=== PATIENT | female | born 2000 | race Caucasian/White ===

== ENCOUNTER → 2019-05-22 08:44 | Outpatient (CLI) | payer BC, SELFPAY ==
[2019-05-22 11:25] LABS: Estradiol 16.2 pg/mL; Follicle Stimulating Hormone 7.3 mIU/mL; Free T3 2.5 pg/mL (2.18-3.98); Progesterone Level 0.54 ng/mL (See Comment); Prolactin 17.8 ng/mL; T4 Free Direct 0.86 ng/dL (0.76-1.46); Thyroid Stim Hormone (TSH) 1.35 uIU/mL (0.358-3.74)
[2019-05-23 05:06] LABS: DHEA Sulfate 189.4 ug/dL (110.0-431.7)
[2019-05-23 09:38] LABS: Sex Hormone-binding Globulin 87.9 nmol/L (24.6-122.0)
[2019-05-26 12:30] LABS: 17-Hydroxyprogesterone 27 ng/dL (.)
== END ==
PROVIDERS: Visit Provider Obstetrics & Gynecology
DX: N92.6 Irregular menstruation, unspecified (principal); N91.5 Oligomenorrhea, unspecified
CPT/HCPCS: 36415; 82533; 82627; 82670; 83001; 83498; 84144; 84146; 84270; 84403; 84439; 84443; 84481; 82626

== ENCOUNTER → 2019-05-29 06:51 | Outpatient (CLI) | payer BC, SELFPAY ==
[2017-07-27 15:06] VITALS: BMI 21.8
[2019-05-29 07:49] LABS: Glucose 75GTT - Fasting 93 mg/dL (70-99)
[2019-05-29 08:28] LABS: Glucose 75GTT - 30 minutes 135 mg/dL (100-160)
[2019-05-29 09:00] LABS: Insulin 75GTT - 30 MIN 150.2 mU/L (Not Estab.)
[2019-05-29 09:00] LABS: Insulin 75GTT - Fasting 4.1 mU/L (2.6-37.6)
[2019-05-29 09:31] LABS: Glucose 75GTT - 60 minutes 99 mg/dL (100-160)
[2019-05-29 09:45] LABS: Insulin 75GTT - 60 min 146.7 mU/L (Not Estab)
[2019-05-29 10:57] LABS: Glucose 75GTT - 120 minutes 67 mg/dL (70-140)
[2019-05-29 11:08] LABS: Insulin 75GTT - 120 min 80.4 mU/L (Not Estab.)
== END ==
PROVIDERS: Family Provider Pediatrics; PCP Pediatrics; Referring Provider Obstetrics & Gynecology; Visit Provider Obstetrics & Gynecology
DX: N92.6 Irregular menstruation, unspecified (principal); R73.09 Other abnormal glucose
CPT/HCPCS: 36415; 82951; 82952; 83525

== ENCOUNTER → 2020-06-11 15:05 | Outpatient (CLI) | payer BC, SELFPAY ==
[2020-06-14 16:48] LABS: HPV Reflexed? NOT INDICATED
== END ==
PROVIDERS: PCP Pediatrics; Visit Provider Obstetrics & Gynecology
DX: Z12.4 Encounter for screening for malignant neoplasm of cervix (principal)
CPT/HCPCS: 88175; G0145

== ENCOUNTER 2021-08-20 16:06 | Outpatient (CLI) | payer BC, SELFPAY ==
[2021-08-25 18:08] LABS: Chlamydia By Nucleic Acid AMP Negative (Negative)
[2021-08-26 16:46] LABS: Gonococcus By Nucleic Acid AMP Negative (Negative)
== END 2021-08-20 23:59 | disposition short-term general hospital (02) ==
LOC: LABSPEC 16:12
PROVIDERS: PCP Pediatrics; Visit Provider Obstetrics & Gynecology
DX: Z11.3 Encounter for screening for infections with a predominantly sexual mode of transmission (principal)
CPT/HCPCS: 87491; 87591

== ENCOUNTER → 2022-03-11 | Outpatient (CLI) | payer BC, SELFPAY ==
[2022-03-11 12:40] LABS: Absolute Lymphocyte Count 2.04 X10^3/uL (0.83-4.51); Absolute Neutrophil Count 2.6 X10^3/uL (2.0-7.7); Basophil# 0.07 X10^3/uL; Basophil% 1.3 % (0-1); Eosinophil# 0.09 X10^3/uL; Eosinophils% 1.7 % (0-5); Hematocrit 43.6 % (37-47); Hemoglobin 14.4 g/dL (12.0-15.0); Lymphocyte # 2.04 X10^3/ul (0.83-4.51); Lymphocyte % 37.9 % (19-41); Mean Platelet Vol. 10.3 fl (6.2-12.0); Monocyte# 0.54 X10^3/uL; NRBC Flagged by Analyzer 0 % (0-5); Neutrophil # 2.62 X10^3/uL (2.7-7.7); Neutrophil % 48.7 % (47-70); Platelet Count 267 K/mm3 (150-450); RBC Distribution Width CV 12.3 % (11.6-14.6); RBC Distribution Width SD 42.5 fl (35.1-43.9); Red Blood Count 4.64 M/mm3 (4.2-5.4); White Blood Count 5.4 K/mm3 (4.4-11.0)
[2022-03-11 13:11] LABS: Progesterone Level 0.36 ng/mL (See Comment); Vitamin B12 513 pg/mL (211-911); Vitamin D,25 Hydroxy 31.6 ng/mL
[2022-03-11 14:12] LABS: ALB/GLOB Ratio 1.1 RATIO (0.9-2.4); AST(SGOT) 18 U/L (15-37); Alanine Aminotransfer ALT/SGPT 33 U/L (13-56); Albumin, Serum 4.1 g/dL (3.2-5.0); Alkaline Phosphatase 81 U/L (45-117); Anion Gap 4 (5-15); BUN 17 mg/dL (7-18); BUN/Creat Ratio 19.4 RATIO (10-20); Calcium,Total 9.3 mg/dL (8.5-10.1); Chloride 106 mmol/L (98-107); Creatinine, Serum 0.88 mg/dL (0.55-1.02); EST Glomerular Filtration Rate 85 mL/min (>60); Est Glom Filt Rate - Afr Amer 103 mL/min (>60); Ferritin 63 ng/mL (8-252); Globulin 3.6 g/dL (2.2-4.2); Glucose 57 mg/dL (74-106); Potassium 3.7 mmol/L (3.5-5.1); Prolactin 9.8 ng/mL; Protein, Total 7.7 g/dL (6.4-8.2); Sodium Level 139 mmol/L (136-145); Thyroid Stim Hormone (TSH) 0.89 uIU/mL (0.358-3.74)
[2022-03-15 15:28] LABS: Estrogen, Total, Serum 150 pg/mL (.)
== END | disposition home or self-care (01) ==
LOC: MFPLAB 10:07
PROVIDERS: PCP Family Medicine; Referring Provider Family Medicine; Visit Provider Family Medicine
DX: R53.83 Other fatigue (principal); N92.6 Irregular menstruation, unspecified
CPT/HCPCS: 36415; 80053; 82306; 82607; 82672; 82728; 84144; 84146; 84443; 85025

== ENCOUNTER → 2022-09-17 | Outpatient (CLI) | payer BC, SELFPAY ==
[2022-09-21 22:07] LABS: Chlamydia By Nucleic Acid AMP Negative (Negative)
[2022-09-21 22:42] LABS: Gonococcus By Nucleic Acid AMP Negative (Negative)
== END | disposition home or self-care (01) ==
LOC: LABSPEC 15:28
PROVIDERS: PCP Family Medicine; Referring Provider Obstetrics & Gynecology; Visit Provider Obstetrics & Gynecology
DX: Z34.90 Encounter for supervision of normal pregnancy, unspecified, unspecified trimester (principal)
CPT/HCPCS: 87077; 87086; 87088; 87186; 87491; 87591

== ENCOUNTER → 2022-10-02 | Outpatient (CLI) | payer BC, SELFPAY ==
[2022-10-02 15:27] LABS: Absolute Lymphocyte Count 2.32 X10^3/uL (0.83-4.51); Absolute Neutrophil Count 7.4 X10^3/uL (2.0-7.7); Basophil# 0.08 X10^3/uL; Basophil% 0.7 % (0-1); Eosinophil# 0.14 X10^3/uL; Eosinophils% 1.3 % (0-5); Hematocrit 40.3 % (37-47); Hemoglobin 13.8 g/dL (12.0-15.0); Lymphocyte # 2.32 X10^3/ul (0.83-4.51); Lymphocyte % 21.4 % (19-41); Mean Corp Hgb Conc 34.2 g/dL (32-36); Mean Corpuscular Volume 90.6 fL (81-99); Mean Platelet Vol. 9.4 fl (6.2-12.0); Monocyte# 0.84 X10^3/uL; Monocyte% 7.8 % (0-10); NRBC Flagged by Analyzer 0 % (0-5); Neutrophil # 7.38 X10^3/uL (2.7-7.7); Neutrophil % 68.2 % (47-70); Platelet Count 301 K/mm3 (150-450); RBC Distribution Width CV 12.3 % (11.6-14.6); RBC Distribution Width SD 40.3 fl (35.1-43.9); Red Blood Count 4.45 M/mm3 (4.2-5.4); White Blood Count 10.8 K/mm3 (4.4-11.0)
[2022-10-02 16:12] LABS: Vitamin D,25 Hydroxy 24.1 ng/mL
[2022-10-02 16:45] LABS: HIV - WCH Non-Reactive (Nonreactive); Hepatitis B Surface Antigen Non-Reactive (Nonreactive); Hepatitis C Antibody Non-Reactive (Nonreactive); Rubella IgG Reactive (Nonreactive); Syphilis Antibodies Non-reactive
== END | disposition home or self-care (01) ==
LOC: LAB 14:53
PROVIDERS: Obstetrics & Gynecology; PCP Family Medicine; Referring Provider Registered Nurse; Visit Provider Registered Nurse
DX: Z34.00 Encounter for supervision of normal first pregnancy, unspecified trimester (principal); Z3A.11 11 weeks gestation of pregnancy
CPT/HCPCS: 36415; 82306; 85025; 86703; 86762; 86780; 86803; 86850; 86900; 86901; 87340

== ENCOUNTER → 2023-01-11 | Outpatient (CLI) | payer BC, SELFPAY ==
[2023-01-11 09:08] LABS: Absolute Lymphocyte Count 1.82 X10^3/uL (0.83-4.51); Absolute Neutrophil Count 9.1 X10^3/uL (2.0-7.7); Basophil# 0.07 X10^3/uL; Basophil% 0.6 % (0-1); Eosinophils% 0.8 % (0-5); Hematocrit 38.4 % (37-47); Hemoglobin 12.8 g/dL (12.0-15.0); Lymphocyte # 1.82 X10^3/ul (0.83-4.51); Lymphocyte % 14.8 % (19-41); Mean Corp Hgb Conc 33.3 g/dL (32-36); Mean Corpuscular Hgb 32.3 pg (27.0-32.0); Mean Platelet Vol. 9.9 fl (6.2-12.0); Monocyte# 1.07 X10^3/uL; Monocyte% 8.7 % (0-10); NRBC Flagged by Analyzer 0 % (0-5); Neutrophil # 9.07 X10^3/uL (2.7-7.7); Neutrophil % 73.6 % (47-70); Platelet Count 225 K/mm3 (150-450); RBC Distribution Width CV 13.2 % (11.6-14.6); RBC Distribution Width SD 47.2 fl (35.1-43.9); Red Blood Count 3.96 M/mm3 (4.2-5.4); White Blood Count 12.3 K/mm3 (4.4-11.0)
[2023-01-11 09:18] LABS: Glucose Challenge Gest 1H 50g 94 mg/dL (70-140)
[2023-01-11 10:09] LABS: HIV - WCH Non-Reactive (Nonreactive); Syphilis Antibodies Non-reactive
== END | disposition home or self-care (01) ==
LOC: PAVLAB 08:38
PROVIDERS: PCP Family Medicine; Referring Provider Advanced Practice Midwife; Visit Provider Advanced Practice Midwife
DX: Z34.00 Encounter for supervision of normal first pregnancy, unspecified trimester (principal); Z3A.11 11 weeks gestation of pregnancy
CPT/HCPCS: 36415; 82950; 85025; 86703; 86780

== ENCOUNTER → 2023-01-22 | Outpatient (CLI) | payer BC, SELFPAY ==
--- NOTE | 2023-01-22 07:53 | US_ITS ---
STUDY: SECOND AND THIRD TRIMESTER OBSTETRICAL ULTRASOUND - LIMITED REASON FOR EXAM: Female, 22 years old marginal cord insertion/growth LMP: 07/13/2022. PRIOR ULTRASOUND: No prior examinations are available for comparison. TECHNIQUE: Transabdominal TECHNICAL QUALITY: Adequate. FINDINGS: There is a single intrauterine fetus. The fetus is in a cephalic presentation. There is demonstrated cardiac activity with a heart rate of 141 bpm. There is a normal amniotic fluid volume. The largest amniotic fluid pocket measures 7.1 cm. The amniotic fluid index (ABHISHEK) is 19.6 cm. The placenta is posterior in location and is not low lying. There are Grade 0 placental changes. The cervix measures 4.5 cm cm in length. The umbilical cord inserts approximately 2.5 cm away from the placental edge which is within normal limits to borderline marginal. BIOMETRY: BPD: 6.7 cm: 27 weeks, 0 days HC: 24.8 cm: 27 weeks, 0 days AC: 23.6 cm: 27 weeks, 6 days FL: 4.7 cm: 5 weeks, 6 days Age by LMP: 27 weeks, 4 days. DUANE by LMP: 04/19/2023. age by current US: 26 weeks, 6 days. DUANE by current US: 04/24/2023. Estimated weight: 1031) grams, +/- 155 grams, 23 percentile. anatomy otherwise is not included on this examination and is not evaluated. US/OB Limited With Biometrics IMPRESSION: 1. Single live intrauterine fetus in cephalic presentation with an estimated gestational age of 26 weeks and 6 days. 2. Cord insertion site is approximately 2.5 cm from the edge of the placenta. Electronically Signed: Erasmo Pathak MD at 10:10 EDT ,
== END | disposition home or self-care (01) ==
PROVIDERS: PCP Family Medicine; Referring Provider Advanced Practice Midwife; Visit Provider Advanced Practice Midwife
DX: Z34.00 Encounter for supervision of normal first pregnancy, unspecified trimester (principal); Z3A.00 Weeks of gestation of pregnancy not specified
CPT/HCPCS: 76816

== ENCOUNTER → 2023-02-19 | Outpatient (CLI) | payer BC, SELFPAY ==
--- NOTE | 2023-02-19 07:52 | US_ITS ---
STUDY: SECOND AND THIRD TRIMESTER OBSTETRICAL ULTRASOUND - LIMITED REASON FOR EXAM: Female, 22 years old marginal cord insertion- growth LMP: July 13, 2022. PRIOR ULTRASOUND: Comparison is made with prior study dated January 22, 2023. TECHNIQUE: Transabdominal TECHNICAL QUALITY: Adequate. FINDINGS: There is a single intrauterine fetus. The fetus is in a cephalic presentation. There is demonstrated cardiac activity with a heart rate of 137 bpm. There is a normal amniotic fluid volume. The largest amniotic fluid pocket measures 4.6 cm. The amniotic fluid index (ABHISHEK) is 16.03 cm. The placenta is posterior in location and is not low lying. The umbilical cord inserts at 2.1 cm from the placental edge. There are Grade 1 placental changes. The cervix measures 3.8 cm in length. BIOMETRY: BPD: 7.8 cm: 31 weeks, 2 days HC: 29.87 cm: 33 weeks, 1 days AC: 27.83 cm: 31 weeks, 6 days FL: 5.56 cm: 29 weeks, 2 days Age by LMP: 31 weeks, 4 days. DUANE by LMP: April 19, 2023. age by current US: 31 weeks, 3 days. DUANE by current US: April 20, 2023. Estimated weight: 1696 grams, +/- 254 grams, 25 percentile. US/OB Limited With Biometrics IMPRESSION: Single live uterine gestation with mean gestational age of 31 weeks and 4 days. The insertion of the umbilical cord is 2.1 cm away from the placental margin. Electronically Signed: Gibran Meade MD at 14:22 EDT ,
== END | disposition home or self-care (01) ==
LOC: US 07:52
PROVIDERS: PCP Family Medicine; Referring Provider Advanced Practice Midwife; Visit Provider Advanced Practice Midwife
DX: Z34.00 Encounter for supervision of normal first pregnancy, unspecified trimester (principal); Z3A.00 Weeks of gestation of pregnancy not specified
CPT/HCPCS: 76816

== ENCOUNTER → 2023-03-23 | Outpatient (CLI) | payer BC, SELFPAY | END | disposition home or self-care (01) | LOC: LABSPEC 16:06 | PROVIDERS: PCP Family Medicine; Referring Provider Obstetrics & Gynecology; Visit Provider Obstetrics & Gynecology | DX: Z34.00 Encounter for supervision of normal first pregnancy, unspecified trimester (principal); Z3A.00 Weeks of gestation of pregnancy not specified | CPT/HCPCS: 87081 ==

== ENCOUNTER → 2023-04-02 | Outpatient (CLI) | payer BC, SELFPAY ==
--- NOTE | 2023-04-02 10:51 | US_ITS ---
STUDY: SECOND AND THIRD TRIMESTER OBSTETRICAL ULTRASOUND - LIMITED REASON FOR EXAM: Female, 22 years old growth LMP: 07/13/2023 PRIOR ULTRASOUND: 02/19/2023. TECHNIQUE: Transabdominal TECHNICAL QUALITY: Adequate. FINDINGS: There is a single intrauterine fetus. The fetus is in a cephalic presentation. There is demonstrated cardiac activity with a heart rate of 135 bpm. There is a normal amniotic fluid volume. The largest amniotic fluid pocket measures 5.2 cm. The amniotic fluid index (ABHISHEK) is 14.8 cm. The placenta is posterior in location and is not low lying. There are Grade 1 placental changes. The cervix measures 3.9 cm in length. BIOMETRY: BPD: 9.3: 37 weeks, 4 days HC: 33.0: 37weeks, 4 days AC: 33.8: 37 weeks, 5 days FL: 6.7: 34 weeks, 2 days Age by LMP: 36 weeks, 6 days. DUANE by LMP: 04/24/2023. age by prior US: weeks, days. DUANE by prior US: . age by current US: 37 weeks, 4 days. DUANE by current US: 04/19/2023. Estimated weight: 3072 grams, +/- 461 grams, 43 percentile. Gender: US/OB Limited With Biometrics IMPRESSION: Single live fetus in a vertex presentation. survey not performed on this exam. Placenta is grade 1 and is not low-lying. Cervix is closed. age by current US: 37 weeks, 4 days. DUANE by current US: 04/19/2023. Estimated weight: 3072 grams, +/- 461 grams, 43 percentile. Electronically Signed: Ramon Pereira MD at 21:11 EDT ,
== END | disposition home or self-care (01) ==
PROVIDERS: PCP Family Medicine; Referring Provider Obstetrics & Gynecology; Visit Provider Obstetrics & Gynecology
DX: O98.513 Other viral diseases complicating pregnancy, third trimester (principal); U07.1 COVID-19; Z3A.00 Weeks of gestation of pregnancy not specified
CPT/HCPCS: 76816

== ENCOUNTER 2023-04-15 03:56 | Inpatient (IN) | payer BC, SELFPAY ==
[2023-04-15] VITALS (111 sets, daily range): BP systolic 60–173; BP diastolic 30–126; PULSE 47–157; RESP 16–18; TEMP 36.4–37.4; O2SAT 84–100; BMI 24.7
[2023-04-15] MEDS: Lactated Ringers 1,000 ML 50 ML IV (04:12)
[2023-04-15] MEDS: LACTATED RINGERS 500 ML 999 ML IV (04:20)
[2023-04-15 04:24] LABS: Absolute Lymphocyte Count 1.99 X10^3/uL (0.83-4.51); Absolute Neutrophil Count 14.3 X10^3/uL (2.0-7.7); Basophil# 0.07 X10^3/uL; Basophil% 0.4 % (0-1); Eosinophil# 0.02 X10^3/uL; Eosinophils% 0.1 % (0-5); Hematocrit 40.2 % (37-47); Hemoglobin 14.4 g/dL (12.0-15.0); Lymphocyte # 1.99 X10^3/ul (0.83-4.51); Lymphocyte % 11.1 % (19-41); Mean Corp Hgb Conc 35.8 g/dL (32-36); Mean Corpuscular Hgb 32.7 pg (27.0-32.0); Mean Corpuscular Volume 91.4 fL (81-99); Mean Platelet Vol. 10.7 fl (6.2-12.0); Monocyte# 1.36 X10^3/uL; Monocyte% 7.6 % (0-10); NRBC Flagged by Analyzer 0 % (0-5); Neutrophil # 14.33 X10^3/uL (2.7-7.7); Neutrophil % 79.7 % (47-70); Platelet Count 191 K/mm3 (150-450); RBC Distribution Width CV 12.6 % (11.6-14.6); RBC Distribution Width SD 42.1 fl (35.1-43.9)
[2023-04-15 05:07] LABS: Syphilis Antibodies Non-reactive
[2023-04-15] MEDS: fentaNYL-bupivacaine (epidural) 100 ML BAG EPIDURAL (05:19)
[2023-04-15] MEDS: Oxytocin 15 Units/NS 250ml 15 UNITS/250 ML IV.SOLN 83 UNITS IV (09:23)
[2023-04-15] MEDS: Oxytocin 10 UNITS/ML Vial IM (09:27)
[2023-04-15] MEDS: Ondansetron 4 MG/2 ML Vial IV (10:42)
--- NOTE | 2023-04-15 10:44 | EX.PCM.OBRPT ---
Assessment & Plan (1) COVID-19 affecting in third trimester: COMMENT: asa 81mg daily, growth US @ 36 week-43% ABHISHEK 14 (2) Marginal insertion of umbilical cord: COMMENT: 28 (2.5cm from edge of placenta) and 34 growth and ABHISHEK per uptodate. Growth at 25% at 31 weeks (3) Vaginal delivery: COMMENT: KW 39.3 IAL Girl Elis (4) Supervision of normal first : COMMENT: , DUANE 04/19/23 ITS A GIRL: Elis!! Desean (5) : QUALIFIERS: Weeks of gestation: 39 weeks Qualified Code(s): Z3A.39 - 39 weeks gestation of COMMENT: GBS neg. discussed genetic & carrier testing Maternal Data Information DUANE Calculator Estimated Delivery Date Method Current WG Current Estimate 04/19/23 LMP (Certain) 39w 3d Final DUANE: 04/19/23 Final DUANE Source: US >20 weeks Gestational age: 39.3 weeks Vaginal Delivery Maternal Presentation Maternal Presentation: Active Labor Maternal Presentation: Progressed well to 10cm dilated and made steady progress with effective maternal pushing. Delivered the head in KYRIE presentation. The head was delivered atraumatically and no nuchal cord was identified. The anterior and posterior shoulders delivered without complication followed by the rest of the infant and the was placed on the maternal abdomen. Delayed cord clamping was employed for approximately 3 minutes. Cord was clamped and cut and gentle traction was applied to the cord and the placenta delivered spontaneously. Immediately following, it was noted to be intact with a 3 vessel cord. The perineum and vagina were inspected and noted to have a second degree laceration which was repaired by Dr Ogden. See her note EBL was 400cc. Patient and infant tolerated delivery well. Apgars 9/9. Dr Ogden notified of vaginal delivery and orders reviewed. Physician agrees with current plan of care. 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: Samreen Blackmon Type of Anesthesia: Epidural Estimated Blood Loss: 400 Time of Delivery: 09:15 Findings Presentation: Vertex Amniotic Membrane Rupture Type: Spontaneous Amniotic Fluid Description: Clear Placental Delivery Description: Spontaneous Placenta Disposition: [facility] Cord Vessel Description: 3 Vessels Cord Entanglement: None Infant A Gender: Female (1 minute): 9 (5 minute): 9 Delayed Cord Clamping: Yes Post Vaginal Delivery Medications Given After Delivery: IV Pitocin and IM Pitocin Episiotomy Description: None Laceration: 2nd degree Multi Select Codes Urinary/Genital Urinary/Genital CPT Codes: 86842 Vaginal Delivery [facility]
[2023-04-15 11:23] LABS: Absolute Neutrophil Count 19.1 X10^3/uL (2.0-7.7); Basophil# 0.05 X10^3/uL; Basophil% 0.2 % (0-1); Hematocrit 31.3 % (37-47); Hemoglobin 10.9 g/dL (12.0-15.0); Lymphocyte % 6.6 % (19-41); Mean Corp Hgb Conc 34.8 g/dL (32-36); Mean Corpuscular Volume 94.8 fL (81-99); Mean Platelet Vol. 10.8 fl (6.2-12.0); Monocyte# 1.92 X10^3/uL; Monocyte% 8.4 % (0-10); NRBC Flagged by Analyzer 0 % (0-5); Neutrophil # 19.12 X10^3/uL (2.7-7.7); Neutrophil % 83.6 % (47-70); POSITIVE DIFFERENTIAL YES; Platelet Count 200 K/mm3 (150-450); RBC Distribution Width CV 12.7 % (11.6-14.6); RBC Distribution Width SD 43.8 fl (35.1-43.9); White Blood Count 22.9 K/mm3 (4.4-11.0)
[2023-04-15 11:25] LABS: Differential Indicated SCAN CRITERIA MET
[2023-04-15] MEDS: Lactated Ringers 1,000 ML 999 ML IV ×2 (11:28→11:39)
[2023-04-15] MEDS: 0.9% Saline Lock 10 ML Syringe IV ×3 (11:39→17:37)
[2023-04-15] MEDS: Clindamycin 900 MG/50 ML BAG 75 MG IV ×3 (12:46→23:55)
[2023-04-15 12:57] LABS: Lactic Acid 2.9 mmol/L (0.4-1.9)
[2023-04-15] MEDS: Gentamicin IV 290 MG in Dextrose 5%-Water (50mL Bag) 50 ML 100 MG IVPB (13:50)
[2023-04-15] MEDS: Ibuprofen 600 MG Tablet PO ×2 (15:15→21:24)
[2023-04-15 16:14] LABS: Reflex Lactate? Y
[2023-04-15] MEDS: Acetaminophen 500 MG Tablet 1000 MG PO (17:38)
--- NOTE | 2023-04-15 17:53 | PCM.PN.BLA ---
Progress Note Patient evaluated for persistent hypotension after delivery. Stat CBC showed elevated white blood cell count. Afebrile. No gross signs of infection, urine culture sent. Lactic acid elevated. Aggressive fluid resuscitation given with over 3 L IV fluids given. Hypotension resolving. Patient feeling better and less dizzy now. Vaginal exam performed and no palpable masses or areas of concern noted. Intact repair noted. Repeat lactic acid planned to determine if additional fluids needed.
--- NOTE | 2023-04-15 17:59 | HP.PCM.OB_ITS ---
HPI - General General Date of Admission: 04/15/23 Date of Service: 04/15/23 HPI Narrative SERGIO RUBI, is a 22 F 39.3 weeks who presents IAL. Maternal Data Information DUANE Calculator Estimated Delivery Date Method Current WG Current Estimate 04/19/23 LMP (Certain) 39w 3d Final DUANE: 04/19/23 Final DUANE Source: US >20 weeks Gestational age: 39.3 weeks PFSH PFSH Home Medications multivit-min no.71-iron fum 28 mg-folate no.1 1 mg-dha 300 mg capsule (PNV- [place]) 1 cap PO DAILY 09/03/22 [History Last Taken 04/14/23 08:00] aspirin 81 mg capsule 81 mg PO DAILY 04/15/23 [History Last Taken 04/14/23 08:00] Allergy/AdvReac Type Severity Reaction Status Date / Time No Known Allergies Allergy Verified 04/15/23 03:37 Family History Mother Miscarriage two miscarriages Other Heart disease Thyroid disorder Social History adopted: No household members: spouse housing: house current occupational status: employed current occupation: [employer] current occupational exposures/hazards: No pets and animals: No history of recent travel: No sexually active: Yes Smoking Status: Never smoker alcohol intake: never substance use type: does not use well-balanced diet: daily or most days caffeine: No eating out: 1-3 times/week during the past year weight has: remained stable what type of physical activity do you participate in: walking and yoga frequency: 3-4 times per week duration: 15-30 minutes/day ca/hoahaoism: [employer] seatbelt use: always do you feel safe at home: Yes 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 History 1 Elective abortions Hx Para 0 Spontaneous abortions Hx # Term Pregnancies Ectopic pregnancies Hx # Pregnancies Multiple births # of living children Visit Details Expected Delivery Route/Plan Labor Preferences- CB/BF classes: encouraged 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 Relevant counseling for the gestational age provided. Continue routine care and follow up unless otherwise noted in visit notes/problem list details OB Flowsheet Initial Weight: 136 lb Date -?-?-?-?-?-?-?-?-?-?-?-?- EGA Weight BP Urine Prot -?-?-?-?-?-?-?-?-?--?-?-?- Glucose FHR FuHt Pres Dilation -?-?-?-?-?-?-?-?-?-?-?-?- Effaced St Visit Note 09/17/22 -?-?-?-?-?-?-?-?-?-?-?-?- 9w 3d 136 lb 6 oz (+6 oz) 103/66 -?-?-?-?-?-?-?-?-?-?-?-?- 170 -?-?-?-?-?-?-?-?-?-?-?-?- SM- CRL cons wit h LMP 10/02/22 -?-?-?-?-?-?-?-?-?-?-?-?- 11w 4d 136 lb 2 oz (+2 oz) 96/58 Negative -?-?-?-?-?-?-?-?-?-?-?-?- Negative 165 -?-?-?-?-?-?-?-?-?-?-?-?- LC-no vb/hannah durant to obtain NOB blood work. declines genetic screening. 10/27/22 -?-?-?-?-?-?-?-?-?-?-?-?- 15w 1d 136 lb (+0 oz) 94/58 Negative -?-?-?-?-?-?-?-?-?-?-?-?- Negative 140 -?-?-?-?-?-?-?-?-?-?-?-?- LC- no lof/vb/cr amping. declines afp. normal ob labs, started on vit d. 11/24/22 -?-?-?-?-?-?-?-?-?-?-?-?- 19w 1d 141 lb (+5 lb) 94/56 Negative -?-?-?-?-?-?-?-?-?-?-?-?- Negative 141 -?-?-?-?-?-?-?-?-?-?-?-?- LC- doing well.d eclines nipt. marginal cord insertion and LC- doing well.declines nipt . 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 12/24/22 -?-?-?-?-?-?-?-?-?-?-?-?- w 3d 144 lb 4 oz (+8 lb 4 oz) 93/59 Negative -?-?-?-?-?-?-?-?-?-?-?-?- Negative 140 24 -?-?-?-?-?-?-?-?-?-?--?-?- KW- + FM. no lof /vb/ctx KW- + FM. no lof/vb/ctx. no concerns today. 28 week labs and Fresh test discussed. 28 week US ordered 01/19/23 -?-?-?-?-?-?-?-?-?-?-?-?- 27w 1d 146 lb 2 oz (+10 lb 2 oz) 90/55 Negative -?-?-?-?-?-?-?-?-?-?-?-?- Negative 146 29 -?-?-?-?-?-?-?-?-?-?-?-?- KW- + FM, no vb/ cramping. labs nl, US on wednesday. encouraged compression hose for episodes of lightheadedness with rest. 02/09/23 -?-?-?-?-?-?-?-?-?-?-?-?- 30w 1d 148 lb 2 oz (+12 lb 2 oz) 95/62 Negative -?-?-?-?-?-?-?-?-?-?-?-?- Negative 143 31 -?-?-?-?-?-?-?-?-?-?-?-?- KW-+fm. no lof/v b/cramping. LARC done. Plans US for 34 weeks for marginal cord insertion. 02/23/23 -?-?-?-?-?-?-?-?-?-?-?-?- 32w 1d 149 lb 8 oz (+13 lb 8 oz) 102/63 Negative -?-?-?-?-?-?-?-?-?-?-?-?- Negative 147 32 -?-?-?-?-?-?-?-?-?-?-?-?- JV- JV- no lof, vaginal bleeding , or dec fm. no complaints today. ultrasound reviewed. 03/09/23 -?-?-?-?-?-?-?-?-?-?-?-?- 34w 1d 150 lb 2 oz (+14 lb 2 oz) 97/57 Trace -?-?-?-?-?-?-?-?-?-?-?-?- Negative 140 34 -?-?-?-?-?-?-?-?-?-?-?-?- KW-no lof/vb/ctx . good fm. no concerns today 03/23/23 -?-?-?-?-?-?-?-?-?-?-?-?- 36w 1d 152 lb 6 oz (+16 lb 6 oz) 104/62 Negative -?-?-?-?-?-?-?-?-?-?-?-?- Negative 145 36 Cephalic -?-?-?-?-?-?-?-?-?-?-?-?- JV- GBS collecte d. pt declines exam. no lof ,vaginal bleeding, or dec fm,. 03/31/23 -?-?-?-?-?-?-?-?-?-?-?-?- 37w 2d 149 lb 6 oz (+13 lb 6 oz) 101/63 Negative -?-?-?-?-?-?-?-?-?--?-?-?- Negative 125 36 -?-?-?-?-?-?-?-?-?-?-?-?- LC- no lof/vb/ct x. good fm. declines exam. gbs negative. reviewed labor techniques, desires tub room. 04/06/23 -?-?-?-?-?-?-?-?-?-?-?-?- 38w 1d 152 lb 6 oz (+16 lb 6 oz) 98/54 -?-?-?-?-?-?-?-?-?-?-?-?- 155 37 -?-?-?-?--?-?-?-?-?-?-?-?- KW-no lof/vb/ctx . good fm. Discussed last growth US. 04/14/23 -?-?-?-?-?-?-?-?-?-?-?-?- 39w 2d 151 lb 8 oz (+15 lb 8 oz) Negative -?-?-?-?-?-?-?-?-?-?-?-?- Negative 140 38 Cephalic 1 -?-?-?-?-?-?-?-?-?-?-?-?- 60 -2 LC- no lof /vb/ctx. good fm. membrane swept today. labor precautions provided. NST FHR Rate Baby B Baseline: 130 Variability:: Moderate Accelerations:: 15 x 15 Decelerations:: None NST Reactive:: Yes FHR Category:: Category I Uterine Activity:: 2-3 minutes ROS Constitutional Constitutional: Denies change in weight, fatigue, fever(s), headache(s), poor appetite or weakness Eyes Eyes: Denies blurry vision, change in vision, floaters, seeing flashes or spots in vision ENT HEENT: Denies dizziness, headache(s), loss taste/smell or sore throat Cardiovascular Cardiovascular: Denies chest pain, dizziness, dyspnea, irregular heart rhythm, lightheadedness, palpitations or rapid heart rate Respiratory/Chest Respiratory/Chest: Denies change in mental status, chest tightness, cough, dyspnea or breast pain Gastrointestinal Gastrointestinal: Denies anorexia, chewing difficulty, constipation, diarrhea or weight changes Genitourinary Genitourinary: Denies difficulty urinating, dysuria, flank pain, genital pain, urinary frequency or urinary urgency Musculoskeletal Musculoskeletal: Denies back pain, difficulty walking, extremity pain, joint pain, muscle cramps or muscle weakness Integumentary Integumentary: Denies lesions or unusual bruising Neurologic Neurologic: Denies abnormal movements, abnormal speech, dizziness, numbness, seizure-like activity, syncope or weakness Psychiatric Psychiatric: Denies behavioral changes, change in appetite, confusion, depression, homicidal ideation, suicidal ideation or suicidal thoughts Endocrine Endocrinology: Denies excessive sweating, polydipsia or polyuria Hematologic/Lymphatic Hematologic/Lymphatic: Denies anemia Allergic/Immunologic Allergic/Immunologic: Denies itchy eyes, lip swelling, throat swelling, tongue swelling or wheezing Vital Signs Vital Signs Vital Signs: 04/15/23 03:32 04/15/23 03:32 04/15/23 03:33 Temperature Temperature Source Pulse Rate 86 Respiratory Rate Blood Pressure 104/52 L Blood Pressure [BP] Blood Pressure Mean [BP] BP Systolic 104 BP Diastolic 52 Blood Pressure Source [BP] Blood Pressure Position [BP] Blood Pressure Location [BP] Pulse Ox 99 Oxygen Delivery Method 04/15/23 03:33 04/15/23 03:33 04/15/23 03:33 Temperature 98.1 F Temperature Source Temporal Pulse Rate 76 Respiratory Rate Blood Pressure Blood Pressure [BP] Blood Pressure Mean [BP] BP Systolic BP Diastolic Blood Pressure Source [BP] Blood Pressure Position [BP] Blood Pressure Location [BP] Pulse Ox Oxygen Delivery Method 04/15/23 04:28 04/15/23 04:28 04/15/23 04:44 Temperature Temperature Source Pulse Rate 75 76 Respiratory Rate Blood Pressure Blood Pressure [BP] Blood Pressure Mean [BP] BP Systolic BP Diastolic Blood Pressure Source [BP] Blood Pressure Position [BP] Blood Pressure Location [BP] Pulse Ox 100 Oxygen Delivery Method 04/15/23 04:44 04/15/23 04:55 04/15/23 04:55 Temperature Temperature Source Pulse Rate 80 Respiratory Rate Blood Pressure Blood Pressure [BP] Blood Pressure Mean [BP] BP Systolic BP Diastolic Blood Pressure Source [BP] Blood Pressure Position [BP] Blood Pressure Location [BP] Pulse Ox 100 86 Oxygen Delivery Method 04/15/23 04:56 04/15/23 04:56 04/15/23 04:59 Temperature Temperature Source Pulse Rate 84 Respiratory Rate Blood Pressure 109/61 114/62 Blood Pressure [BP] Blood Pressure Mean [BP] BP Systolic 109 114 BP Diastolic 61 62 Blood Pressure Source [BP] Blood Pressure Position [BP] Blood Pressure Location [BP] Pulse Ox Oxygen Delivery Method 04/15/23 04:59 04/15/23 04:59 04/15/23 05:02 Temperature Temperature Source Pulse Rate 90 87 Respiratory Rate Blood Pressure Blood Pressure [BP] Blood Pressure Mean [BP] BP Systolic BP Diastolic Blood Pressure Source [BP] Blood Pressure Position [BP] Blood Pressure Location [BP] Pulse Ox 100 Oxygen Delivery Method 04/15/23 05:02 04/15/23 05:05 04/15/23 05:05 Temperature Temperature Source Pulse Rate 90 Respiratory Rate Blood Pressure Blood Pressure [BP] Blood Pressure Mean [BP] BP Systolic BP Diastolic Blood Pressure Source [BP] Blood Pressure Position [BP] Blood Pressure Location [BP] Pulse Ox 85 92 Oxygen Delivery Method 04/15/23 05:07 04/15/23 05:07 04/15/23 05:09 Temperature Temperature Source Pulse Rate 86 Respiratory Rate Blood Pressure 115/53 L Blood Pressure [BP] Blood Pressure Mean [BP] BP Systolic 115 BP Diastolic 53 Blood Pressure Source [BP] Blood Pressure Position [BP] Blood Pressure Location [BP] Pulse Ox 92 Oxygen Delivery Method 04/15/23 05:09 04/15/23 05:11 04/15/23 05:11 Temperature Temperature Source Pulse Rate 78 81 Respiratory Rate Blood Pressure Blood Pressure [BP] Blood Pressure Mean [BP] BP Systolic BP Diastolic Blood Pressure Source [BP] Blood Pressure Position [BP] Blood Pressure Location [BP] Pulse Ox 100 Oxygen Delivery Method 04/15/23 05:13 04/15/23 05:13 04/15/23 05:14 Temperature Temperature Source Pulse Rate 81 Respiratory Rate Blood Pressure 115/56 L Blood Pressure [BP] Blood Pressure Mean [BP] BP Systolic 115 BP Diastolic 56 Blood Pressure Source [BP] Blood Pressure Position [BP] Blood Pressure Location [BP] Pulse Ox 86 Oxygen Delivery Method 04/15/23 05:14 04/15/23 05:17 04/15/23 05:17 Temperature Temperature Source Pulse Rate 81 78 Respiratory Rate Blood Pressure Blood Pressure [BP] Blood Pressure Mean [BP] BP Systolic BP Diastolic Blood Pressure Source [BP] Blood Pressure Position [BP] Blood Pressure Location [BP] Pulse Ox 100 Oxygen Delivery Method 04/15/23 05:18 04/15/23 05:18 04/15/23 05:19 Temperature Temperature Source Pulse Rate 84 Respiratory Rate Blood Pressure 122/58 H Blood Pressure [BP] Blood Pressure Mean [BP] BP Systolic 122 BP Diastolic 58 Blood Pressure Source [BP] Blood Pressure Position [BP] Blood Pressure Location [BP] Pulse Ox 89 Oxygen Delivery Method 04/15/23 05:19 04/15/23 05:22 04/15/23 05:22 Temperature Temperature Source Pulse Rate 157 H 77 Respiratory Rate Blood Pressure Blood Pressure [BP] Blood Pressure Mean [BP] BP Systolic BP Diastolic Blood Pressure Source [BP] Blood Pressure Position [BP] Blood Pressure Location [BP] Pulse Ox 100 Oxygen Delivery Method 04/15/23 05:27 04/15/23 05:27 04/15/23 05:30 Temperature Temperature Source Temporal Pulse Rate 79 Respiratory Rate Blood Pressure Blood Pressure [BP] Blood Pressure Mean [BP] BP Systolic BP Diastolic Blood Pressure Source [BP] Blood Pressure Position [BP] Blood Pressure Location [BP] Pulse Ox 100 Oxygen Delivery Method 04/15/23 05:30 04/15/23 05:33 04/15/23 05:33 Temperature 97.6 F L Temperature Source Pulse Rate 104 H Respiratory Rate Blood Pressure 97/66 Blood Pressure [BP] Blood Pressure Mean [BP] BP Systolic 97 BP Diastolic 66 Blood Pressure Source [BP] Blood Pressure Position [BP] Blood Pressure Location [BP] Pulse Ox Oxygen Delivery Method 04/15/23 05:32 04/15/23 05:44 04/15/23 05:44 Temperature Temperature Source Pulse Rate 76 Respiratory Rate Blood Pressure 107/49 L Blood Pressure [BP] Blood Pressure Mean [BP] BP Systolic 107 BP Diastolic 49 Blood Pressure Source [BP] Blood Pressure Position [BP] Blood Pressure Location [BP] Pulse Ox 100 Oxygen Delivery Method 04/15/23 05:48 04/15/23 05:48 04/15/23 05:53 Temperature Temperature Source Pulse Rate 87 89 Respiratory Rate Blood Pressure Blood Pressure [BP] Blood Pressure Mean [BP] BP Systolic BP Diastolic Blood Pressure Source [BP] Blood Pressure Position [BP] Blood Pressure Location [BP] Pulse Ox 98 Oxygen Delivery Method 04/15/23 05:53 04/15/23 06:17 04/15/23 06:17 Temperature Temperature Source Pulse Rate 47 L Respiratory Rate Blood Pressure 120/96 H Blood Pressure [BP] Blood Pressure Mean [BP] BP Systolic 120 BP Diastolic 96 Blood Pressure Source [BP] Blood Pressure Position [BP] Blood Pressure Location [BP] Pulse Ox 98 Oxygen Delivery Method 04/15/23 06:18 04/15/23 06:18 04/15/23 07:19 Temperature Temperature Source Pulse Rate 84 88 Respiratory Rate Blood Pressure Blood Pressure [BP] Blood Pressure Mean [BP] BP Systolic BP Diastolic Blood Pressure Source [BP] Blood Pressure Position [BP] Blood Pressure Location [BP] Pulse Ox 98 Oxygen Delivery Method 04/15/23 07:19 04/15/23 07:21 04/15/23 07:21 Temperature Temperature Source Pulse Rate 83 Respiratory Rate Blood Pressure 93/51 L Blood Pressure [BP] Blood Pressure Mean [BP] BP Systolic 93 BP Diastolic 51 Blood Pressure Source [BP] Blood Pressure Position [BP] Blood Pressure Location [BP] Pulse Ox 99 Oxygen Delivery Method 04/15/23 07:18 04/15/23 07:18 04/15/23 07:18 Temperature Temperature Source Temporal Pulse Rate 88 Respiratory Rate Blood Pressure 93/51 L Blood Pressure [BP] Blood Pressure Mean [BP] BP Systolic 93 BP Diastolic 51 Blood Pressure Source [BP] Blood Pressure Position [BP] Blood Pressure Location [BP] Pulse Ox Oxygen Delivery Method 04/15/23 07:18 04/15/23 07:18 04/15/23 08:22 Temperature 98.6 F Temperature Source Pulse Rate Respiratory Rate Blood Pressure 119/55 L Blood Pressure [BP] Blood Pressure Mean [BP] BP Systolic 119 BP Diastolic 55 Blood Pressure Source [BP] Blood Pressure Position [BP] Blood Pressure Location [BP] Pulse Ox 99 Oxygen Delivery Method 04/15/23 08:22 04/15/23 08:21 04/15/23 08:21 Temperature Temperature Source Temporal Pulse Rate 76 Respiratory Rate Blood Pressure 119/55 L Blood Pressure [BP] Blood Pressure Mean [BP] BP Systolic 119 BP Diastolic 55 Blood Pressure Source [BP] Blood Pressure Position [BP] Blood Pressure Location [BP] Pulse Ox Oxygen Delivery Method 04/15/23 08:21 04/15/23 08:21 04/15/23 08:21 Temperature 99.0 F Temperature Source Pulse Rate 74 Respiratory Rate Blood Pressure Blood Pressure [BP] Blood Pressure Mean [BP] BP Systolic BP Diastolic Blood Pressure Source [BP] Blood Pressure Position [BP] Blood Pressure Location [BP] Pulse Ox 97 Oxygen Delivery Method 04/15/23 09:59 04/15/23 09:59 04/15/23 10:04 Temperature Temperature Source Pulse Rate 89 97 Respiratory Rate Blood Pressure 100/54 L Blood Pressure [BP] Blood Pressure Mean [BP] BP Systolic 100 BP Diastolic 54 Blood Pressure Source [BP] Blood Pressure Position [BP] Blood Pressure Location [BP] Pulse Ox Oxygen Delivery Method 04/15/23 10:04 04/15/23 10:00 04/15/23 10:00 Temperature Temperature Source Temporal Pulse Rate 92 Respiratory Rate Blood Pressure Blood Pressure [BP] Blood Pressure Mean [BP] BP Systolic BP Diastolic Blood Pressure Source [BP] Blood Pressure Position [BP] Blood Pressure Location [BP] Pulse Ox 97 Oxygen Delivery Method 04/15/23 10:00 04/15/23 10:00 04/15/23 10:14 Temperature 99.0 F Temperature Source Pulse Rate Respiratory Rate Blood Pressure 91/50 L Blood Pressure [BP] Blood Pressure Mean [BP] BP Systolic 91 BP Diastolic 50 Blood Pressure Source [BP] Blood Pressure Position [BP] Blood Pressure Location [BP] Pulse Ox 97 Oxygen Delivery Method 04/15/23 10:14 04/15/23 10:25 04/15/23 10:25 Temperature Temperature Source Pulse Rate 96 94 Respiratory Rate Blood Pressure Blood Pressure [BP] Blood Pressure Mean [BP] BP Systolic BP Diastolic Blood Pressure Source [BP] Blood Pressure Position [BP] Blood Pressure Location [BP] Pulse Ox 98 Oxygen Delivery Method 04/15/23 10:15 04/15/23 10:27 04/15/23 10:27 Temperature Temperature Source Temporal Pulse Rate 75 Respiratory Rate Blood Pressure Blood Pressure [BP] Blood Pressure Mean [BP] BP Systolic BP Diastolic Blood Pressure Source [BP] Blood Pressure Position [BP] Blood Pressure Location [BP] Pulse Ox 84 Oxygen Delivery Method 04/15/23 10:15 04/15/23 10:27 04/15/23 10:27 Temperature 98.8 F Temperature Source Pulse Rate 74 Respiratory Rate Blood Pressure 63/33 L Blood Pressure [BP] Blood Pressure Mean [BP] BP Systolic 63 BP Diastolic 33 Blood Pressure Source [BP] Blood Pressure Position [BP] Blood Pressure Location [BP] Pulse Ox Oxygen Delivery Method 04/15/23 10:29 04/15/23 10:29 04/15/23 10:30 Temperature Temperature Source Pulse Rate 66 70 Respiratory Rate Blood Pressure 66/30 L Blood Pressure [BP] Blood Pressure Mean [BP] BP Systolic 66 BP Diastolic 30 Blood Pressure Source [BP] Blood Pressure Position [BP] Blood Pressure Location [BP] Pulse Ox Oxygen Delivery Method 04/15/23 10:30 04/15/23 10:32 04/15/23 10:32 Temperature Temperature Source Pulse Rate 81 Respiratory Rate Blood Pressure 71/33 L Blood Pressure [BP] Blood Pressure Mean [BP] BP Systolic 71 BP Diastolic 33 Blood Pressure Source [BP] Blood Pressure Position [BP] Blood Pressure Location [BP] Pulse Ox 99 Oxygen Delivery Method 04/15/23 10:34 04/15/23 10:34 04/15/23 10:35 Temperature Temperature Source Pulse Rate 86 80 Respiratory Rate Blood Pressure Blood Pressure [BP] Blood Pressure Mean [BP] BP Systolic BP Diastolic Blood Pressure Source [BP] Blood Pressure Position [BP] Blood Pressure Location [BP] Pulse Ox 93 Oxygen Delivery Method 04/15/23 10:35 04/15/23 10:40 04/15/23 10:40 Temperature Temperature Source Pulse Rate 91 Respiratory Rate Blood Pressure 60/31 L Blood Pressure [BP] Blood Pressure Mean [BP] BP Systolic 60 BP Diastolic 31 Blood Pressure Source [BP] Blood Pressure Position [BP] Blood Pressure Location [BP] Pulse Ox 95 Oxygen Delivery Method 04/15/23 10:40 04/15/23 10:41 04/15/23 10:41 Temperature Temperature Source Pulse Rate 88 Respiratory Rate Blood Pressure 68/33 L Blood Pressure [BP] Blood Pressure Mean [BP] BP Systolic 68 BP Diastolic 33 Blood Pressure Source [BP] Blood Pressure Position [BP] Blood Pressure Location [BP] Pulse Ox 99 Oxygen Delivery Method 04/15/23 10:46 04/15/23 10:46 04/15/23 10:45 Temperature Temperature Source Pulse Rate 89 Respiratory Rate Blood Pressure 73/41 L Blood Pressure [BP] Blood Pressure Mean [BP] BP Systolic 73 BP Diastolic 41 Blood Pressure Source [BP] Blood Pressure Position [BP] Blood Pressure Location [BP] Pulse Ox 97 Oxygen Delivery Method 04/15/23 10:51 04/15/23 10:51 04/15/23 10:50 Temperature Temperature Source Pulse Rate 81 Respiratory Rate Blood Pressure 76/46 L Blood Pressure [BP] Blood Pressure Mean [BP] BP Systolic 76 BP Diastolic 46 Blood Pressure Source [BP] Blood Pressure Position [BP] Blood Pressure Location [BP] Pulse Ox 100 Oxygen Delivery Method 04/15/23 10:54 04/15/23 10:54 04/15/23 10:56 Temperature Temperature Source Pulse Rate 105 H Respiratory Rate Blood Pressure 69/48 L Blood Pressure [BP] Blood Pressure Mean [BP] BP Systolic 69 BP Diastolic 48 Blood Pressure Source [BP] Blood Pressure Position [BP] Blood Pressure Location [BP] Pulse Ox 92 Oxygen Delivery Method 04/15/23 10:55 04/15/23 10:55 04/15/23 11:01 Temperature Temperature Source Pulse Rate 82 Respiratory Rate Blood Pressure 63/37 L Blood Pressure [BP] Blood Pressure Mean [BP] BP Systolic 63 BP Diastolic 37 Blood Pressure Source [BP] Blood Pressure Position [BP] Blood Pressure Location [BP] Pulse Ox 99 Oxygen Delivery Method 04/15/23 11:01 04/15/23 11:00 04/15/23 11:05 Temperature Temperature Source Pulse Rate 91 103 H Respiratory Rate Blood Pressure Blood Pressure [BP] Blood Pressure Mean [BP] BP Systolic BP Diastolic Blood Pressure Source [BP] Blood Pressure Position [BP] Blood Pressure Location [BP] Pulse Ox 97 Oxygen Delivery Method 04/15/23 11:05 04/15/23 11:08 04/15/23 11:08 Temperature Temperature Source Pulse Rate 105 H Respiratory Rate Blood Pressure 173/126 H Blood Pressure [BP] Blood Pressure Mean [BP] BP Systolic 173 BP Diastolic 126 Blood Pressure Source [BP] Blood Pressure Position [BP] Blood Pressure Location [BP] Pulse Ox 99 Oxygen Delivery Method 04/15/23 11:08 04/15/23 11:10 04/15/23 11:10 Temperature Temperature Source Pulse Rate 89 Respiratory Rate Blood Pressure Blood Pressure [BP] Blood Pressure Mean [BP] BP Systolic BP Diastolic Blood Pressure Source [BP] Blood Pressure Position [BP] Blood Pressure Location [BP] Pulse Ox 93 100 Oxygen Delivery Method 04/15/23 11:14 04/15/23 11:14 04/15/23 11:15 Temperature Temperature Source Pulse Rate 90 106 H Respiratory Rate Blood Pressure Blood Pressure [BP] Blood Pressure Mean [BP] BP Systolic BP Diastolic Blood Pressure Source [BP] Blood Pressure Position [BP] Blood Pressure Location [BP] Pulse Ox 90 Oxygen Delivery Method 04/15/23 11:15 04/15/23 11:20 04/15/23 11:20 Temperature Temperature Source Pulse Rate 89 Respiratory Rate Blood Pressure Blood Pressure [BP] Blood Pressure Mean [BP] BP Systolic BP Diastolic Blood Pressure Source [BP] Blood Pressure Position [BP] Blood Pressure Location [BP] Pulse Ox 97 99 Oxygen Delivery Method 04/15/23 11:25 04/15/23 11:25 04/15/23 11:30 Temperature Temperature Source Pulse Rate 80 98 Respiratory Rate Blood Pressure Blood Pressure [BP] Blood Pressure Mean [BP] BP Systolic BP Diastolic Blood Pressure Source [BP] Blood Pressure Position [BP] Blood Pressure Location [BP] Pulse Ox 100 Oxygen Delivery Method 04/15/23 11:30 04/15/23 11:35 04/15/23 11:35 Temperature Temperature Source Pulse Rate 82 Respiratory Rate Blood Pressure Blood Pressure [BP] Blood Pressure Mean [BP] BP Systolic BP Diastolic Blood Pressure Source [BP] Blood Pressure Position [BP] Blood Pressure Location [BP] Pulse Ox 96 99 Oxygen Delivery Method 04/15/23 11:39 04/15/23 11:39 04/15/23 11:40 Temperature Temperature Source Pulse Rate 83 83 Respiratory Rate Blood Pressure 87/43 L Blood Pressure [BP] Blood Pressure Mean [BP] BP Systolic 87 BP Diastolic 43 Blood Pressure Source [BP] Blood Pressure Position [BP] Blood Pressure Location [BP] Pulse Ox Oxygen Delivery Method 04/15/23 11:40 04/15/23 11:45 04/15/23 11:45 Temperature Temperature Source Pulse Rate 82 Respiratory Rate Blood Pressure Blood Pressure [BP] Blood Pressure Mean [BP] BP Systolic BP Diastolic Blood Pressure Source [BP] Blood Pressure Position [BP] Blood Pressure Location [BP] Pulse Ox 100 100 Oxygen Delivery Method 04/15/23 11:47 04/15/23 11:47 04/15/23 11:50 Temperature Temperature Source Pulse Rate 81 78 Respiratory Rate Blood Pressure 97/51 L Blood Pressure [BP] Blood Pressure Mean [BP] BP Systolic 97 BP Diastolic 51 Blood Pressure Source [BP] Blood Pressure Position [BP] Blood Pressure Location [BP] Pulse Ox Oxygen Delivery Method 04/15/23 11:50 04/15/23 11:52 04/15/23 11:52 Temperature Temperature Source Pulse Rate 77 Respiratory Rate Blood Pressure 95/52 L Blood Pressure [BP] Blood Pressure Mean [BP] BP Systolic 95 BP Diastolic 52 Blood Pressure Source [BP] Blood Pressure Position [BP] Blood Pressure Location [BP] Pulse Ox 100 Oxygen Delivery Method 04/15/23 11:55 04/15/23 11:55 04/15/23 11:57 Temperature Temperature Source Pulse Rate 81 Respiratory Rate Blood Pressure 103/51 L Blood Pressure [BP] Blood Pressure Mean [BP] BP Systolic 103 BP Diastolic 51 Blood Pressure Source [BP] Blood Pressure Position [BP] Blood Pressure Location [BP] Pulse Ox 100 Oxygen Delivery Method 04/15/23 11:57 04/15/23 12:00 04/15/23 12:00 Temperature Temperature Source Pulse Rate 91 81 Respiratory Rate Blood Pressure Blood Pressure [BP] Blood Pressure Mean [BP] BP Systolic BP Diastolic Blood Pressure Source [BP] Blood Pressure Position [BP] Blood Pressure Location [BP] Pulse Ox 100 Oxygen Delivery Method 04/15/23 12:05 04/15/23 12:05 04/15/23 12:07 Temperature Temperature Source Pulse Rate 87 Respiratory Rate Blood Pressure 106/51 L Blood Pressure [BP] Blood Pressure Mean [BP] BP Systolic 106 BP Diastolic 51 Blood Pressure Source [BP] Blood Pressure Position [BP] Blood Pressure Location [BP] Pulse Ox 100 Oxygen Delivery Method 04/15/23 12:07 04/15/23 12:09 04/15/23 12:09 Temperature Temperature Source Pulse Rate 81 83 Respiratory Rate Blood Pressure Blood Pressure [BP] Blood Pressure Mean [BP] BP Systolic BP Diastolic Blood Pressure Source [BP] Blood Pressure Position [BP] Blood Pressure Location [BP] Pulse Ox 91 Oxygen Delivery Method 04/15/23 12:10 04/15/23 12:10 04/15/23 12:12 Temperature Temperature Source Pulse Rate 82 Respiratory Rate Blood Pressure 104/52 L Blood Pressure [BP] Blood Pressure Mean [BP] BP Systolic 104 BP Diastolic 52 Blood Pressure Source [BP] Blood Pressure Position [BP] Blood Pressure Location [BP] Pulse Ox 100 Oxygen Delivery Method 04/15/23 12:12 04/15/23 12:15 04/15/23 12:15 Temperature Temperature Source Pulse Rate 81 85 Respiratory Rate Blood Pressure Blood Pressure [BP] Blood Pressure Mean [BP] BP Systolic BP Diastolic Blood Pressure Source [BP] Blood Pressure Position [BP] Blood Pressure Location [BP] Pulse Ox 100 Oxygen Delivery Method 04/15/23 12:17 04/15/23 12:17 04/15/23 12:17 Temperature Temperature Source Pulse Rate 91 Respiratory Rate Blood Pressure 100/58 L Blood Pressure [BP] Blood Pressure Mean [BP] BP Systolic 100 BP Diastolic 58 Blood Pressure Source [BP] Blood Pressure Position [BP] Blood Pressure Location [BP] Pulse Ox 93 Oxygen Delivery Method 04/15/23 12:20 04/15/23 12:20 04/15/23 12:21 Temperature Temperature Source Temporal Pulse Rate 100 Respiratory Rate Blood Pressure Blood Pressure [BP] Blood Pressure Mean [BP] BP Systolic BP Diastolic Blood Pressure Source [BP] Blood Pressure Position [BP] Blood Pressure Location [BP] Pulse Ox 100 Oxygen Delivery Method 04/15/23 12:21 04/15/23 12:21 04/15/23 12:21 Temperature Temperature Source Pulse Rate 88 Respiratory Rate Blood Pressure 100/58 L Blood Pressure [BP] Blood Pressure Mean [BP] BP Systolic 100 BP Diastolic 58 Blood Pressure Source [BP] Blood Pressure Position [BP] Blood Pressure Location [BP] Pulse Ox 100 Oxygen Delivery Method 04/15/23 12:21 04/15/23 12:25 04/15/23 12:25 Temperature 98.4 F Temperature Source Pulse Rate 88 Respiratory Rate Blood Pressure Blood Pressure [BP] Blood Pressure Mean [BP] BP Systolic BP Diastolic Blood Pressure Source [BP] Blood Pressure Position [BP] Blood Pressure Location [BP] Pulse Ox 100 Oxygen Delivery Method 04/15/23 12:30 04/15/23 12:30 04/15/23 12:35 Temperature Temperature Source Pulse Rate 81 87 Respiratory Rate Blood Pressure Blood Pressure [BP] Blood Pressure Mean [BP] BP Systolic BP Diastolic Blood Pressure Source [BP] Blood Pressure Position [BP] Blood Pressure Location [BP] Pulse Ox 100 Oxygen Delivery Method 04/15/23 12:35 04/15/23 12:37 04/15/23 12:37 Temperature Temperature Source Pulse Rate 83 Respiratory Rate Blood Pressure 96/50 L Blood Pressure [BP] Blood Pressure Mean [BP] BP Systolic 96 BP Diastolic 50 Blood Pressure Source [BP] Blood Pressure Position [BP] Blood Pressure Location [BP] Pulse Ox 100 Oxygen Delivery Method 04/15/23 12:37 04/15/23 12:40 04/15/23 12:40 Temperature Temperature Source Pulse Rate 91 Respiratory Rate Blood Pressure Blood Pressure [BP] Blood Pressure Mean [BP] BP Systolic BP Diastolic Blood Pressure Source [BP] Blood Pressure Position [BP] Blood Pressure Location [BP] Pulse Ox 90 100 Oxygen Delivery Method 04/15/23 12:45 04/15/23 12:45 04/15/23 12:50 Temperature Temperature Source Pulse Rate 83 90 Respiratory Rate Blood Pressure Blood Pressure [BP] Blood Pressure Mean [BP] BP Systolic BP Diastolic Blood Pressure Source [BP] Blood Pressure Position [BP] Blood Pressure Location [BP] Pulse Ox 99 Oxygen Delivery Method 04/15/23 12:50 04/15/23 12:53 04/15/23 12:53 Temperature Temperature Source Pulse Rate 98 Respiratory Rate Blood Pressure 70/32 L Blood Pressure [BP] Blood Pressure Mean [BP] BP Systolic 70 BP Diastolic 32 Blood Pressure Source [BP] Blood Pressure Position [BP] Blood Pressure Location [BP] Pulse Ox 98 Oxygen Delivery Method 04/15/23 12:55 04/15/23 12:55 04/15/23 13:00 Temperature Temperature Source Pulse Rate 118 H 112 H Respiratory Rate Blood Pressure Blood Pressure [BP] Blood Pressure Mean [BP] BP Systolic BP Diastolic Blood Pressure Source [BP] Blood Pressure Position [BP] Blood Pressure Location [BP] Pulse Ox 100 Oxygen Delivery Method 04/15/23 13:00 04/15/23 13:05 04/15/23 13:05 Temperature Temperature Source Pulse Rate 111 H Respiratory Rate Blood Pressure Blood Pressure [BP] Blood Pressure Mean [BP] BP Systolic BP Diastolic Blood Pressure Source [BP] Blood Pressure Position [BP] Blood Pressure Location [BP] Pulse Ox 99 100 Oxygen Delivery Method 04/15/23 13:07 04/15/23 13:07 04/15/23 13:10 Temperature Temperature Source Pulse Rate 100 100 Respiratory Rate Blood Pressure 108/54 L Blood Pressure [BP] Blood Pressure Mean [BP] BP Systolic 108 BP Diastolic 54 Blood Pressure Source [BP] Blood Pressure Position [BP] Blood Pressure Location [BP] Pulse Ox Oxygen Delivery Method 04/15/23 13:10 04/15/23 13:15 04/15/23 13:15 Temperature Temperature Source Pulse Rate 85 Respiratory Rate Blood Pressure Blood Pressure [BP] Blood Pressure Mean [BP] BP Systolic BP Diastolic Blood Pressure Source [BP] Blood Pressure Position [BP] Blood Pressure Location [BP] Pulse Ox 99 99 Oxygen Delivery Method 04/15/23 13:25 04/15/23 13:25 04/15/23 13:30 Temperature Temperature Source Pulse Rate 92 108 H Respiratory Rate Blood Pressure Blood Pressure [BP] Blood Pressure Mean [BP] BP Systolic BP Diastolic Blood Pressure Source [BP] Blood Pressure Position [BP] Blood Pressure Location [BP] Pulse Ox 99 Oxygen Delivery Method 04/15/23 13:30 04/15/23 13:35 04/15/23 13:35 Temperature Temperature Source Pulse Rate 119 H Respiratory Rate Blood Pressure Blood Pressure [BP] Blood Pressure Mean [BP] BP Systolic BP Diastolic Blood Pressure Source [BP] Blood Pressure Position [BP] Blood Pressure Location [BP] Pulse Ox 98 99 Oxygen Delivery Method 04/15/23 13:40 04/15/23 13:40 04/15/23 13:45 Temperature Temperature Source Pulse Rate 92 116 H Respiratory Rate Blood Pressure Blood Pressure [BP] Blood Pressure Mean [BP] BP Systolic BP Diastolic Blood Pressure Source [BP] Blood Pressure Position [BP] Blood Pressure Location [BP] Pulse Ox 98 Oxygen Delivery Method 04/15/23 13:45 04/15/23 13:50 04/15/23 13:50 Temperature Temperature Source Pulse Rate 100 Respiratory Rate Blood Pressure Blood Pressure [BP] Blood Pressure Mean [BP] BP Systolic BP Diastolic Blood Pressure Source [BP] Blood Pressure Position [BP] Blood Pressure Location [BP] Pulse Ox 98 98 Oxygen Delivery Method 04/15/23 15:17 04/15/23 15:17 04/15/23 15:18 Temperature Temperature Source Pulse Rate 103 H Respiratory Rate Blood Pressure 106/56 L Blood Pressure [BP] Blood Pressure Mean [BP] BP Systolic 106 BP Diastolic 56 Blood Pressure Source [BP] Blood Pressure Position [BP] Blood Pressure Location [BP] Pulse Ox 98 Oxygen Delivery Method 04/15/23 15:18 04/15/23 15:30 04/15/23 17:37 Temperature Temperature Source Temporal Pulse Rate 104 H Respiratory Rate Blood Pressure 104/54 L Blood Pressure [BP] Blood Pressure Mean [BP] BP Systolic 104 BP Diastolic 54 Blood Pressure Source [BP] Blood Pressure Position [BP] Blood Pressure Location [BP] Pulse Ox Oxygen Delivery Method 04/15/23 17:37 04/15/23 15:30 Temperature 98.8 F Temperature Source Temporal Pulse Rate 82 101 H Respiratory Rate 18 Blood Pressure Blood Pressure [BP] 106/56 L Blood Pressure Mean [BP] 72 BP Systolic BP Diastolic Blood Pressure Source [BP] Monitor Blood Pressure Position [BP] Semi-Fowlers Blood Pressure Location [BP] Right Arm Pulse Ox 98 Oxygen Delivery Method Room Air Weight Weight: 149 lb Body Mass Index (BMI) 24.7 Physical Exam Const alert, oriented x3 and no apparent distress General Appearance: cooperative Orientation / Consciousness: awake HEENT normocephalic Neck full ROM Lymph Lymphatic: no lymphadenopathy noted Chest inspection of chest normal Resp normal respiratory effort and normal air movement Effort and Inspection: able to speak in complete sentences and symmetric chest movement GI soft to palpation and non-tender Inspection: gravid Palpation: soft; Negative for tender external exam normal Back/Spine normal to inspection Extremity normal to inspection and full ROM Skin no rashes or lesions noted Psych mental status grossly normal Appearance: grossly normal Speech: normal speech Labs Labs Labs: Blood Type O POSITIVE Antibody Screen NEGATIVE Hct 31.3 % (37-47) L Hgb 10.9 g/dL (12.0-15.0) L Obstetrics US Syphilis Total Ab Non-reactive Rubella IgG Antibody Reactive (Nonreactive) Hep Bs Antigen Non-Reactive (Nonreactive) Chlamydia DNA (ELLIOTT) Negative (Negative) Neisseria gonorrhoeae DNA (ELLIOTT) Negative (Negative) HIV 1&2 Antibody Non-Reactive (Nonreactive) Glucose 1 Hr 50 gm 94 mg/dL (70-140) Assessment & Plan (1) COVID-19 affecting in third trimester: COMMENT: asa 81mg daily, growth US @ 36 week-43% ABHISHEK 14 (2) Marginal insertion of umbilical cord: COMMENT: 28 (2.5cm from edge of placenta) and 34 growth and ABHISHEK per uptodate. Growth at 25% at 31 weeks (3) Vitamin D insufficiency: COMMENT: will start on vit d supplementation (4) UTI in : COMMENT: asymptomatic, low colony count. (5) Supervision of normal first : COMMENT: , DUANE 04/19/23 ITS A GIRL: Elis!! Desean PLAN: Patient presents IAL, plan expectant management for , pitocin/AROM PRN if needed. Pain management: plans epidural. GBS negative. Management of any complications: none I have reviewed the [facility] and made any clinically relevant updates. (6) : QUALIFIERS: Weeks of gestation: 39 weeks Qualified Code(s): Z3A.39 - 39 weeks gestation of COMMENT: GBS neg. discussed genetic & carrier testing Charges/Coding Multi Select Codes Urinary/Genital Urinary/Genital CPT Codes: No Charge
[2023-04-15 18:31] LABS: Lactic Acid 0.9 mmol/L (0.4-1.9)
[2023-04-16] VITALS (9 sets, daily range): BP systolic 88–112; BP diastolic 51–64; PULSE 75–84; RESP 16; TEMP 36.4–36.8; O2SAT 97–99
[2023-04-16] MEDS: Ibuprofen 600 MG Tablet PO ×3 (04:41→19:17)
[2023-04-16 05:02] LABS: Hemoglobin 9.4 g/dL (12.0-15.0); Mean Corp Hgb Conc 33.6 g/dL (32-36); Mean Corpuscular Hgb 32.3 pg (27.0-32.0); Mean Corpuscular Volume 96.2 fL (81-99); Mean Platelet Vol. 10.9 fl (6.2-12.0); Platelet Count 175 K/mm3 (150-450); RBC Distribution Width SD 45.4 fl (35.1-43.9); Red Blood Count 2.91 M/mm3 (4.2-5.4); White Blood Count 24.7 K/mm3 (4.4-11.0)
[2023-04-16] MEDS: Acetaminophen 500 MG Tablet 1000 MG PO ×3 (06:19→14:42)
[2023-04-16] MEDS: Clindamycin 900 MG/50 ML BAG 75 MG IV ×2 (06:19→11:59)
[2023-04-16] MEDS: Benzocaine/Lanolin/Aloe Vera 1 SPRAY EACH TOPICAL (08:21)
--- NOTE | 2023-04-16 08:40 | NURSING ---
reviewed and agree with student charting MACK Costa instructor
--- NOTE | 2023-04-16 09:16 | PN.OBGYN_ITS ---
Subjective Subjective Patient doing well without complaints. Tolerating PO. Ambulating and voiding without difficulty. Feeding well. Denies chest pain, shortness of breath, calf pain/swelling, fevers, chills, lightheadedness. Objective Data Objective Data Vital Signs: Vital Signs Temp Pulse Resp BP Pulse Ox O2 Del Method 97.6 F L 77 16 108/51 L 98 Room Air 04/16/23 08:16 04/16/23 08:16 04/16/23 08:16 04/16/23 08:16 04/16/23 08:16 04/16/23 08:16 Oxygen Delivery Method Room Air Weight: 149 lb Body Mass Index (BMI) 24.7 Intake & Output: Intake and Output for Last 24 Hours 04/14/23 04/15/23 04/16/23 23:59 23:59 23:59 Intake Total 4547.58 / 4547.58 100 / 100 Output Total 3150 / 3150 200 / 200 Balance 1397.58 / 1397.58 -100 / -100 Lab / Micro Data 04/16/23 04:45 Labs: Laboratory Results - last 24 hr 04/15/23 11:15: WBC 22.9 H, RBC 3.30 L, Hgb 10.9 L, Hct 31.3 L, MCV 94.8, MCH 33.0 H, MCHC 34.8, RDW Std Deviation 43.8, RDW Coeff of Josue 12.7, Plt Count 200, MPV 10.8, Immature Gran % (Auto) 1.200 H, Neut % (Auto) 83.6 H, Lymph % (Auto) 6.6 L, [place] % (Auto) 8.4, Eos % (Auto) 0.0, Baso % (Auto) 0.2, Absolute Neuts (auto) 19.1 H, Absolute Lymphs (auto) 1.50, Nucleated RBC % 0, Differential Comment COMMENT, Diff Path Review November04/15/23 12:05: Lactic Acid 2.9 H* 04/15/23 17:50: Lactic Acid 0.9 04/16/23 04:45: WBC 24.7 H, RBC 2.91 L, Hgb 9.4 L, Hct 28.0 L, MCV 96.2, MCH 32.3 H, MCHC 33.6, RDW Std Deviation 45.4 H, RDW Coeff of Josue 13.0, Plt Count 175, MPV 10.9 Physical Exam Const alert and no apparent distress Resp normal respiratory effort GI GI Narrative: fundus below u, normal lochia Extremity full ROM Skin no rashes or lesions noted Psych mental status grossly normal Assessment & Plan (1) Vaginal delivery: COMMENT: KW 39.3 IAL Girl Elis (2) Elevated WBC count: COMMENT: 24 hour antibiotic suspected chorio cbc in am PLAN: Plan s/p PPD # 1 1. routine post delivery care 2. breast feeding- support given 3. rh positive 4. rubella immune 5. cbc in am
[2023-04-16] MEDS: 0.9% Saline Lock 10 ML Syringe IV (12:01)
[2023-04-17] VITALS (7 sets, daily range): BP systolic 84–108; BP diastolic 46–56; PULSE 76–99; RESP 14; TEMP 36.3–36.7; O2SAT 98
[2023-04-17] MEDS: Acetaminophen 500 MG Tablet 1000 MG PO ×2 (00:45→10:08)
--- NOTE | 2023-04-17 05:23 | NURSING ---
report received from celestine GENTILE. this RN to assume care of pt at this time.
[2023-04-17 06:13] LABS: Absolute Lymphocyte Count 3.11 X10^3/uL (0.83-4.51); Absolute Neutrophil Count 14.3 X10^3/uL (2.0-7.7); Basophil# 0.11 X10^3/uL; Basophil% 0.6 % (0-1); Eosinophil# 0.32 X10^3/uL; Eosinophils% 1.6 % (0-5); Hematocrit 26.2 % (37-47); Hemoglobin 8.6 g/dL (12.0-15.0); Lymphocyte # 3.11 X10^3/ul (0.83-4.51); Lymphocyte % 15.6 % (19-41); Mean Corp Hgb Conc 32.8 g/dL (32-36); Mean Corpuscular Hgb 32.1 pg (27.0-32.0); Mean Corpuscular Volume 97.8 fL (81-99); Mean Platelet Vol. 10.8 fl (6.2-12.0); Monocyte# 1.43 X10^3/uL; Monocyte% 7.2 % (0-10); NRBC Flagged by Analyzer 0 % (0-5); Neutrophil # 14.32 X10^3/uL (2.7-7.7); Neutrophil % 71.8 % (47-70); Platelet Count 175 K/mm3 (150-450); RBC Distribution Width CV 13.3 % (11.6-14.6); RBC Distribution Width SD 46.5 fl (35.1-43.9); Red Blood Count 2.68 M/mm3 (4.2-5.4); White Blood Count 19.9 K/mm3 (4.4-11.0)
[2023-04-17] MEDS: Ibuprofen 600 MG Tablet PO (07:43)
[2023-04-17] MEDS: Senna/Docusate Sodium 1 Tablet PO (07:44)
--- NOTE | 2023-04-17 10:31 | PCM.PN.OB ---
Subjective Subjective Patient doing well, lying in bed upon enterance to room. Tolerating PO. Ambulating and voiding without difficulty. x1 episode of dizziness upon ambulation this morning with improved symptoms after breakfast. Feeding well. Denies chest pain, shortness of breath, calf pain/swelling, fevers, chills, lightheadedness. Objective Data Objective Data Vital Signs: Vital Signs Temp Pulse Resp BP Pulse Ox O2 Del Method 97.3 F L 90 14 107/56 L 98 Room Air 04/17/23 09:35 04/17/23 10:00 04/17/23 09:35 04/17/23 10:00 04/17/23 09:35 04/17/23 09:35 Oxygen Delivery Method Room Air Weight: 149 lb Body Mass Index (BMI) 24.7 Intake & Output: Intake and Output for Last 24 Hours 04/15/23 04/16/23 04/17/23 23:59 23:59 23:59 Intake Total 4547.58 / 4547.58 150 / 150 Output Total 3150 / 3150 200 / 200 Balance 1397.58 / 1397.58 -50 / -50 Lab / Micro Data 04/17/23 05:52 Labs: Laboratory Results - last 24 hr 04/17/23 05:52: WBC 19.9 H, RBC 2.68 L, Hgb 8.6 L, Hct 26.2 L, MCV 97.8, MCH 32.1 H, MCHC 32.8, RDW Std Deviation 46.5 H, RDW Coeff of Josue 13.3, Plt Count 175, MPV 10.8, Immature Gran % (Auto) 3.200 H, Neut % (Auto) 71.8 H, Lymph % (Auto) 15.6 L, [place] % (Auto) 7.2, Eos % (Auto) 1.6, Baso % (Auto) 0.6, Absolute Neuts (auto) 14.3 H, Absolute Lymphs (auto) 3.11, Nucleated RBC % 0 Micro: Microbiology 04/15/23 14:10 Urine, Catheterized Urine Culture - Final Culture exhibits no growth. Physical Exam Const alert and no apparent distress Resp normal respiratory effort GI GI Narrative: fundus below u, normal lochia Extremity full ROM Skin no rashes or lesions noted Psych mental status grossly normal Assessment & Plan (1) Anemia: COMMENT: venofer [id number] repeat in 3-5 days VSS (2) Vaginal delivery: COMMENT: KW 39.3 IAL Girl Elis (3) Elevated WBC count: COMMENT: 24 hour antibiotic suspected chorio cbc in am PLAN: WBC trending down. remains afebrile. PLAN: Plan s/p PPD # 2 1. routine post delivery care 2. breast feeding- support given 3. rh positive 4. rubella immune 5. plan d/c home after venofer infusion reviewed poc, exam and labs with Dr. Esteves who agrees with above management.
[2023-04-17] MEDS: 0.9% Saline Lock 10 ML Syringe IV ×2 (10:43→13:07)
[2023-04-17] MEDS: Iron Sucrose Complex 300 MG in 0.9% Normal Saline (250mL Bag) 250 ML 177 MG IV (11:38)
--- NOTE | 2023-04-17 14:17 | DS.PCM_ITS ---
Providers Date of Admission: 04/15/23 Date of Discharge: 04/17/23 Primary Care Physician: Maria M Herrera DO Reason For Visit: VAGINAL DELIVERY Diagnosis Discharge Diagnosis (1) Anemia: Status: Acute Code(s): D64.9 - Anemia, unspecified (2) Vaginal delivery: Status: Acute Code(s): O80 - Encounter for full-term uncomplicated delivery (3) Elevated WBC count: Status: Acute Code(s): D72.829 - Elevated white blood cell count, unspecified Plan: WBC trending down. remains afebrile. Plan s/p PPD # 2 1. routine post delivery care 2. breast feeding- support given 3. rh positive 4. rubella immune 5. plan d/c home after venofer infusion reviewed poc, exam and labs with Dr. Esteves who agrees with above management. Medications at Discharge Home Medications multivit-min no.71-iron fum 28 mg-folate no.1 1 mg-dha 300 mg capsule (PNV- [place]) 1 cap PO DAILY 09/03/22 aspirin 81 mg capsule 81 mg PO DAILY 04/15/23 Hospital Course Operations None Procedures None Summary of Care Provided Hospital Course: admitted in active labor, had hypotension with elevated WBC that responded well to IVF and 24 hour IV antibiotic course. remained afebrile. a nemia treated with venofer x1 to be followed and managed with another x1 dose in 3-5 days. Physical Exam Const alert and no apparent distress Resp normal respiratory effort GI GI Narrative: fundus below u, normal lochia Extremity full ROM Skin no rashes or lesions noted Psych mental status grossly normal Weight / BMI Weight Weight: 149 lb Body Mass Index (BMI) 24.7 ABG / Lab / Microbiology Data 04/17/23 05:52 Laboratory: Laboratory Results - last 24 hr 04/17/23 05:52: WBC 19.9 H, RBC 2.68 L, Hgb 8.6 L, Hct 26.2 L, MCV 97.8, MCH 32.1 H, MCHC 32.8, RDW Std Deviation 46.5 H, RDW Coeff of Josue 13.3, Plt Count 175, MPV 10.8, Immature Gran % (Auto) 3.200 H, Neut % (Auto) 71.8 H, Lymph % (Auto) 15.6 L, [place] % (Auto) 7.2, Eos % (Auto) 1.6, Baso % (Auto) 0.6, Absolute Neuts (auto) 14.3 H, Absolute Lymphs (auto) 3.11, Nucleated RBC % 0 Microbiology: Microbiology 04/15/23 14:10 Urine, Catheterized Urine Culture - Final Culture exhibits no growth. D/C Instructions Discharge Diet: No restrictions Discharge Activity: May Not Drive and May Shower May resume sexual activity in: 6 weeks Weight Bearing Status: Full weight bearing Call your doctor if your incision/area has: Sudden Increased Bleeding, Increased Pain/ Swelling and Foul Smelling Discharge Call your doctor if you observe: Fever of 101 or Higher, Numbness or Tingling, Change in Color, Inability to urinate, Inability to have a bowel movement, Using more than 1 pad per hour, Shortness of breath, Dizziness, Fainting spells, Chest pain, Calf discomfort and Uncontrolled pain Please Follow Up With: Florence Hammond CNM When: 6 weeks , please call office to make an appointment. Congratulations on the of your baby! Meaningful Use Info Meaningful Use Diagnoses (Choose all that apply): None applicable Discharge Plan Admission Admit Date/Time: 04/15/23 03:56 Attending Provider: Samreen Blackmon Primary Care Provider: Maria M Herrera Discharge Orders/Prescriptions Prescriptions: No Action PNV-[place] 28-1-300 mg capsule 1 cap PO DAILY aspirin 81 mg capsule 81 mg PO DAILY Referrals / Follow Up: Maria M Herrera, DO [Primary Care Provider] - Disposition Disposition (needs filled in before D/C Order can be placed): Home, Self Care
[2023-04-19 08:47] LABS: Pathologist Review Reviewed
== END 2023-04-17 15:00 | disposition home or self-care (01) | DRG 806 ==
LOC: WPOUT 04:00 → WP 04:00
PROVIDERS: Obstetrics & Gynecology; Registered Nurse; Admitting Provider Advanced Practice Midwife; PCP Family Medicine; Referring Provider Advanced Practice Midwife; Visit Provider Advanced Practice Midwife
DX: O43.193 Other malformation of placenta, third trimester (principal); Z37.0 Single live birth; O99.43 Diseases of the circulatory system complicating the puerperium; D62 Acute posthemorrhagic anemia; O99.13 Other diseases of the blood and blood-forming organs and certain disorders involving the immune mechanism complicating the puerperium; I95.9 Hypotension, unspecified; D72.829 Elevated white blood cell count, unspecified; E55.9 Vitamin D deficiency, unspecified; O90.81 Anemia of the puerperium; O99.284 Endocrine, nutritional and metabolic diseases complicating childbirth; O70.1 Second degree perineal laceration during delivery; Z79.82 Long term (current) use of aspirin; Z3A.39 39 weeks gestation of pregnancy
CPT/HCPCS: 59025; 59050; 83605; 85025; 85027; 86780; 86850; 86900; 86901; 87086; 99221; J1756; J7050; J7120; A4216; G0378; J2405

== ENCOUNTER → 2023-10-06 | Outpatient (CLI) | payer BC, SELFPAY ==
[2023-10-06 08:46] LABS: Absolute Lymphocyte Count 2.38 X10^3/uL (0.83-4.51); Absolute Neutrophil Count 4.2 X10^3/uL (2.0-7.7); Basophil# 0.07 X10^3/uL; Basophil% 0.9 % (0-1); Eosinophil# 0.19 X10^3/uL; Eosinophils% 2.5 % (0-5); Hemoglobin 14.6 g/dL (12.0-15.0); Lymphocyte # 2.38 X10^3/ul (0.83-4.51); Lymphocyte % 31.6 % (19-41); Mean Corpuscular Hgb 30.2 pg (27.0-32.0); Mean Corpuscular Volume 88.8 fL (81-99); Mean Platelet Vol. 9.5 fl (6.2-12.0); Monocyte# 0.63 X10^3/uL; Monocyte% 8.4 % (0-10); NRBC Flagged by Analyzer 0 % (0-5); Neutrophil # 4.24 X10^3/uL (2.7-7.7); Neutrophil % 56.5 % (47-70); Platelet Count 287 K/mm3 (150-450); RBC Distribution Width CV 13.2 % (11.6-14.6); RBC Distribution Width SD 43.3 fl (35.1-43.9); Red Blood Count 4.84 M/mm3 (4.2-5.4); White Blood Count 7.5 K/mm3 (4.4-11.0)
[2023-10-06 09:04] LABS: Ferritin 49 ng/mL (8-252); Iron 112 ug/dL (50-170); Iron Binding Capacity,Total 361 ug/dL (250-450)
== END | disposition home or self-care (01) ==
PROVIDERS: PCP Family Medicine; Referring Provider Registered Nurse; Visit Provider Registered Nurse
DX: D64.9 Anemia, unspecified (principal)
CPT/HCPCS: 36415; 82728; 83540; 83550; 85025

== ENCOUNTER → 2023-12-02 | Outpatient (CLI) | payer BC, SELFPAY ==
[2023-12-02 12:46] LABS: Absolute Lymphocyte Count 2.48 X10^3/uL (0.83-4.51); Absolute Neutrophil Count 2.8 X10^3/uL (2.0-7.7); Basophil# 0.07 X10^3/uL; Basophil% 1.2 % (0-1); Eosinophil# 0.16 X10^3/uL; Eosinophils% 2.7 % (0-5); Hematocrit 45.4 % (37-47); Hemoglobin 14.6 g/dL (12.0-15.0); Lymphocyte # 2.48 X10^3/ul (0.83-4.51); Lymphocyte % 41.6 % (19-41); Mean Corp Hgb Conc 32.2 g/dL (32-36); Mean Corpuscular Hgb 30.4 pg (27.0-32.0); Mean Corpuscular Volume 94.4 fL (81-99); Mean Platelet Vol. 10.2 fl (6.2-12.0); Monocyte% 8.4 % (0-10); NRBC Flagged by Analyzer 0 % (0-5); Neutrophil # 2.75 X10^3/uL (2.7-7.7); Neutrophil % 46.1 % (47-70); Platelet Count 311 K/mm3 (150-450); RBC Distribution Width CV 12.3 % (11.6-14.6); RBC Distribution Width SD 43.1 fl (35.1-43.9); Red Blood Count 4.81 M/mm3 (4.2-5.4)
[2023-12-02 14:49] LABS: ALB/GLOB Ratio 1.3 RATIO (0.9-2.4); AST(SGOT) 14 U/L (15-37); Alanine Aminotransfer ALT/SGPT 25 U/L (13-56); Albumin, Serum 4.3 g/dL (3.2-5.0); Alkaline Phosphatase 106 U/L (45-117); Anion Gap 4 (5-15); BUN 20 mg/dL (7-18); BUN/Creat Ratio 24.6 RATIO (10-20); Calcium,Total 9.6 mg/dL (8.5-10.1); Chloride 108 mmol/L (98-107); Cholesterol 147 mg/dL (200); Creatinine, Serum 0.81 mg/dL (0.55-1.02); EST Glomerular Filtration Rate 91 mL/min (>60); Est Glom Filt Rate - Afr Amer 110 mL/min (>60); Globulin 3.4 g/dL (2.2-4.2); Glucose 71 mg/dL (74-106); High Density Lipoprotein 62 mg/dL; Potassium 4.2 mmol/L (3.5-5.1); Protein, Total 7.7 g/dL (6.4-8.2); Sodium Level 138 mmol/L (136-145); Triglycerides 35 mg/dL; Very Low Density Lipoprotein 7 mg/dL (5-40)
== END | disposition home or self-care (01) ==
LOC: BFHLAB 08:12
PROVIDERS: PCP Nurse Practitioner Family; Referring Provider Nurse Practitioner Family; Visit Provider Nurse Practitioner Family
DX: Z00.01 Encounter for general adult medical examination with abnormal findings (principal)
CPT/HCPCS: 36415; 80053; 80061; 85025

== ENCOUNTER → 2024-05-03 | Outpatient (CLI) | payer BC, SELFPAY ==
[2024-05-08 14:47] LABS: HPV Reflexed? NOT INDICATED
== END | disposition home or self-care (01) ==
LOC: LABSPEC 11:00
PROVIDERS: PCP Nurse Practitioner Family; Referring Provider Nurse Practitioner Family; Visit Provider Nurse Practitioner Family
DX: Z12.4 Encounter for screening for malignant neoplasm of cervix (principal)
CPT/HCPCS: 88175; G0145

== ENCOUNTER → 2025-02-02 | Outpatient (CLI) | payer BC, SELFPAY ==
--- NOTE | 2025-02-02 07:52 | US_ITS ---
PROCEDURE: PELVIC W/ TRANSVAGINAL REASON FOR EXAM: PELVIC PAIN/PRESSURE TECHNIQUE: PELVIC W/ TRANSVAGINAL COMPARISON: None FINDINGS: Measurements: Uterus: 8 cm x 6.9 cm x 5 cm with a volume of 144.83 mL Endometrial Thickness: 11 mm. It is hyperechoic. Right Ovary: 3.8 cm x 2.3 cm x 1.6 cm with a volume of 7.23 mL. Left Ovary: 3.4 cm x 3.2 cm x 2 cm with a volume of 11.51 mL. TRANSABDOMINAL: Uterus: Normal size, myometrial echotexture, and contour. Endometrium: Unremarkable. Right ovary: Normal size and echotexture. Left ovary: Normal size and echotexture. Other: No large pelvic mass identified. Transvaginal sonography was performed to better visualize the endometrium. TRANSVAGINAL: Uterus: Retroverted. Normal contour and myometrial echotexture. Endometrium: Normal echotexture. Right ovary: Normal size and echotexture. Left ovary: Normal size and echotexture. Other adnexal findings: None. Cul-de-sac: No free intraperitoneal fluid identified. Tenderness: No tenderness US/Pelvic w/ Transvaginal IMPRESSION: NORMAL TRANSABDOMINAL AND TRANSVAGINAL PELVIC ULTRASOUND. Reading Location: [place] [id number]
== END | disposition home or self-care (01) ==
PROVIDERS: PCP Nurse Practitioner Family; Referring Provider Nurse Practitioner Family; Visit Provider Nurse Practitioner Family
DX: R10.2 Pelvic and perineal pain (principal)
CPT/HCPCS: 76830; 76856

== ENCOUNTER → 2025-05-09 | Outpatient (CLI) | payer BC, SELFPAY ==
[2025-05-09 12:33] LABS: Hematocrit 43.2 % (37-47); Hemoglobin 14.3 g/dL (12.0-15.0); Immature Granulocytes Count 0.010 X10^3/uL (0.0-0.0); Mean Corp Hgb Conc 33.1 g/dL (32-36); Mean Corpuscular Volume 91.5 fL (81-99); Mean Platelet Vol. 9.9 fl (6.2-12.0); NRBC Flagged by Analyzer 0 % (0-5); Platelet Count 307 K/mm3 (150-450); RBC Distribution Width CV 12.7 % (11.6-14.6); RBC Distribution Width SD 42.4 fl (35.1-43.9); Red Blood Count 4.72 M/mm3 (4.2-5.4); White Blood Count 5.1 K/mm3 (4.4-11.0)
[2025-05-09 13:17] LABS: AST(SGOT) 20 U/L (<=31); Alanine Aminotransfer ALT/SGPT 29 U/L (<=34); Albumin, Serum 4.6 g/dL (3.5-5.0); Alkaline Phosphatase 67 U/L (35-104); Anion Gap 9 (5-15); BUN 13 mg/dL (4-19); BUN/Creat Ratio 17.6 RATIO (10-20); Calcium,Total 9.4 mg/dL (7.6-11.0); Carbon Dioxide 25.8 mmol/L (21.0-32.0); Chloride 105 mmol/L (98-108); Globulin 2.8 g/dL (2.2-4.2); Glucose 70 mg/dL (70-99); Potassium 4.0 mmol/L (3.3-5.1)
[2025-05-10 04:07] LABS: PROGESTERONE 0.3 ng/mL (.)
== END | disposition home or self-care (01) ==
PROVIDERS: PCP Nurse Practitioner Family; Visit Provider Nurse Practitioner Family
DX: N97.0 Female infertility associated with anovulation (principal)
CPT/HCPCS: 36415; 80053; 82670; 84144; 84439; 84443; 85025

== ENCOUNTER → 2025-05-22 | Outpatient (CLI) | payer BC, SELFPAY ==
[2025-05-23 04:07] LABS: PROGESTERONE 12.9 ng/mL (.)
== END | disposition home or self-care (01) ==
LOC: BWCLAB 09:25
PROVIDERS: PCP Nurse Practitioner Family; Visit Provider Nurse Practitioner Family
DX: N97.0 Female infertility associated with anovulation (principal)
CPT/HCPCS: 36415; 84144